=== PATIENT | male | born 1995 | race Caucasian/White ===

== ENCOUNTER 2018-10-24 16:44 | Emergency (ER) | payer MEDICAID, OTHER ==
--- NOTE | 2018-10-24 17:22 | EDM.PDOC ---
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 Pt c/o pain with movement of the wrist and hand. Points to pain over the distal ulnar shaft. No tingling or numbness in the hand. No open wound. No other injury. Onset: Today, Sudden Onset Date: 10/24/18 Onset Time: 15:30 Duration: Getting Worse Location: Reports: Upper Extremity, Right Quality: Reports: Ache Severity: Moderate Improves with: Reports: None Worsens with: Reports: None Associated Symptoms: Denies: Confusion, Chest Pain, Cough, Diaphoresis, Fever/ Chills, Headaches, Nausea/Vomiting, Rash, Seizure, Shortness of Breath, Syncope , Weakness - Related Data Allergies Allergy/AdvReac Type Severity Reaction Status Date / Time No Known Allergies Allergy Verified 04/21/18 09:22 Home Meds: Home Meds Albuterol [Ventolin HFA] 1 - 2 puff INH Q4HR PRN 04/21/18 [History] ED ROS GENERAL - Review of Systems Review Of Systems: See Below Constitutional: Denies: Fever, Chills HEENT: Denies: Rhinitis, Throat Pain Respiratory: Denies: Shortness of Breath, Cough, Sputum Cardiovascular: Denies: Chest Pain, Lightheadedness GI/Abdominal: Denies: Abdominal Pain, Nausea, Vomiting : Denies: Dysuria, Frequency Musculoskeletal: Reports: Hand Pain. Denies: Joint Pain, Joint Swelling Skin: Reports: Bruising. Denies: Pruritis, Rash, Wound Neurological: Denies: Confusion, Dizziness ED EXAM, GENERAL - Physical Exam Exam: See Below Exam Limited By: No Limitations General Appearance: Alert Eye Exam: Bilateral Eye: EOMI, PERRL Ears: Normal External Exam, Normal Canal, Hearing Grossly Normal, Normal TMs Ear Exam: Bilateral Ear: Auricle Normal, Canal Normal, TM normal Nose: Normal Inspection, Normal Mucosa, No Blood Throat/Mouth: Normal Inspection, Normal Lips, Normal Teeth, Normal Gums, Normal Oropharynx, Normal Voice, No Airway Compromise Head: Atraumatic, Normocephalic Neck: Normal Inspection, Supple, Non-Tender, Full Range of Motion Respiratory/Chest: No Respiratory Distress, Lungs Clear, Normal Breath Sounds, No Accessory Muscle Use, Chest Non-Tender Cardiovascular: Normal Peripheral Pulses, Regular Rate, Rhythm, No Edema, No Gallop, No JVD, No Murmur, No Rub Extremities: Other (right forerm and wrist: there is a ovoid swelling noted over the ulnar margin of the lower forearm, about 3cm by 4cm . raised. Tedner over the swelling. Pt can pronate and supinate the forearm. also flex and extend the hand without discomfort.) Neurological: Alert, Oriented, CN II-XII Intact, Normal Cognition, Normal Gait, Normal Reflexes, No Motor/Sensory Deficits Course - Vital Signs Text/Narrative:: Xray right wrist appears normal, soft tissue swelling noted. Pt reassured that he has develop skin contusion, but no fracture. Advised cold compresses every 2- 3 hrs. Motrin 600mg 3 times daily for pain. The contusion might cause skin discoloration, but should gradually improve without any complications. okay to return to work next Saturday. - Orders/Labs/Meds Orders: Active Orders 24 hr Category Date Time Status Wrist Comp Min 3V Rt [CR] Stat Exams 10/24/18 17:14 Ordered Departure - Departure Time of Disposition: 17:45 Disposition: Home, Self-Care 01 Condition: Good Clinical Impression: Contusion of forearm, right - Discharge Information *PRESCRIPTION DRUG MONITORING PROGRAM REVIEWED*: Not Applicable *COPY OF PRESCRIPTION DRUG MONITORING REPORT IN PATIENT ROMERO: Not Applicable Referrals: PCP,None [Primary Care Provider] - Additional Instructions: Xray right wrist appears normal, soft tissue swelling noted. Pt reassured that he has develop skin contusion, but no fracture. Advised cold compresses every 2- 3 hrs. Motrin 600mg 3 times daily for pain. The contusion might cause skin discoloration, but should gradually improve without any complications. okay to return to work next Saturday. - Problem List & Annotations (1) Contusion of forearm, right SNOMED Code(s): 51426499 Code(s): S50.11XA - CONTUSION OF RIGHT FOREARM, INITIAL ENCOUNTER Status: Acute Current Visit: Yes - Problem List Review Problem List Initiated/Reviewed/Updated: Yes - My Orders Last 24 Hours: My Active Orders 10/24/18 17:14 Wrist Comp Min 3V Rt [CR] Stat - Assessment/Plan Last 24 Hours: My Active Orders 10/24/18 17:14 Wrist Comp Min 3V Rt [CR] Stat Assessment:: right forearm contusion Plan: Xray right wrist appears normal, soft tissue swelling noted. Pt reassured that he has develop skin contusion, but no fracture. Advised cold compresses every 2- 3 hrs. Motrin 600mg 3 times daily for pain. The contusion might cause skin discoloration, but should gradually improve without any complications. okay to return to work next Saturday.
--- NOTE | 2018-10-28 09:09 | CR ---
DATE OF SERVICE: 10/24/2018 CLINICAL DATA: Heavy metal fell and hit his left lower forearm. LEFT WRIST: No priors. No acute fracture or dislocation. No lytic or blastic bone lesions. IMPRESSION: Negative exam. [id number] MTDD
== END 2018-10-24 18:15 | disposition home or self-care (01) ==
LOC: LB.ED 16:44
DX: S50.11XA Contusion of right forearm, initial encounter (principal); W20.8XXA Other cause of strike by thrown, projected or falling object, initial encounter; Y99.0 Civilian activity done for income or pay
CPT/HCPCS: 73110-LT; 99283-25

== ENCOUNTER 2019-02-28 17:30 | Emergency (ER) | payer MEDICAID ==
[2019-02-28 18:20] VITALS: BP 110/91; PULSE 65
--- NOTE | 2019-02-28 18:26 | EDM.PDOC ---
ED HPI GENERAL MEDICAL PROBLEM - General Chief Complaint: General Stated Complaint: Colds Time Seen by Provider: 02/28/19 17:45 Source of Information: Reports: Patient History Limitations: Reports: No Limitations - History of Present Illness INITIAL COMMENTS - FREE TEXT/NARRATIVE: According to patient he has been having nasal congestion and cough for about 10 days now. It has not resolved. No fever or chills. No wheezing or shortness of breath. He wants to be checked out. No No other complaints. Has been feeding well. Sleeping well. Onset: Gradual Duration: Day(s): (10 days) Severity: Mild Improves with: Reports: None Worsens with: Reports: None Associated Symptoms: Reports: Cough. Denies: Confusion, Chest Pain, Diaphoresis , Fever/Chills, Headaches, Nausea/Vomiting, Rash, Seizure, Shortness of Breath, Syncope, Weakness - Related Data Allergies Allergy/AdvReac Type Severity Reaction Status Date / Time No Known Allergies Allergy Verified 04/21/18 09:22 Home Meds: Home Meds Albuterol [Ventolin HFA] 1 - 2 puff INH Q4HR PRN 04/21/18 [History] ED ROS GENERAL - Review of Systems Review Of Systems: See Below Constitutional: Denies: Fever, Chills, Weakness HEENT: Reports: Rhinitis. Denies: Ear Pain, Throat Pain Respiratory: Reports: Cough. Denies: Shortness of Breath, Wheezing, Pleuritic Chest Pain, Sputum Cardiovascular: Denies: Chest Pain, Lightheadedness GI/Abdominal: Denies: Abdominal Pain, Nausea, Vomiting : Denies: Dysuria, Frequency ED EXAM, GENERAL - Physical Exam Exam: See Below Exam Limited By: No Limitations General Appearance: Alert, WD/WN, No Apparent Distress Eye Exam: Bilateral Eye: EOMI, PERRL Ears: Normal External Exam, Normal Canal, Hearing Grossly Normal, Normal TMs Ear Exam: Bilateral Ear: Auricle Normal, Canal Normal, TM normal Nose: Normal Mucosa, Nasal Drainage (clear minimal) Throat/Mouth: Normal Inspection, Normal Lips, Normal Teeth, Normal Gums, Normal Oropharynx, Normal Voice, No Airway Compromise Head: Atraumatic, Normocephalic Neck: Normal Inspection, Supple, Non-Tender, Full Range of Motion Respiratory/Chest: No Respiratory Distress, Lungs Clear, Normal Breath Sounds, No Accessory Muscle Use, Chest Non-Tender Cardiovascular: Normal Peripheral Pulses, Regular Rate, Rhythm, No Edema, No Gallop, No JVD, No Murmur, No Rub GI/Abdominal: Normal Bowel Sounds, Soft, Non-Tender, No Organomegaly, No Distention, No Abnormal Bruit, No Mass Course - Vital Signs Text/Narrative:: Pt's clinical exam is normal other then mild nasal congestion. His vitals are stable. His lung are clear to auscultation. His CBC done today shows white count of 6.8 with normal differentials. pt reassured that he has viral URI, he does not appear to be acutely ill. I have advised him to take Zyrtec 10mg daily, steam inhalations 2-3 times daily, and vit C 100mg daily for 1 wk. Rest and hydration. Symptoms should start to improve. Followup in clinic next week if not better. - Orders/Labs/Meds Labs: Laboratory Tests 02/28/19 Range/Units 17:55 WBC 6.8 (4.0-11.0) K/uL RBC 4.87 (4.50-6.50) M/uL Hgb 15.0 (13.0-18.0) g/dL Hct 42.6 (40.0-54.0) % MCV 88 (76-96) fL MCH 30.8 (27.0-32.0) pg MCHC 35.2 H (31.0-35.0) g/dL RDW 12.4 (11.0-16.0) % Plt Count 193 (150-400) K/uL MPV 9.9 (6.0-10.0) fL Neut % (Auto) 45.5 (45.0-70.0) % Lymph % (Auto) 35.8 (20.0-40.0) % [place] % (Auto) 10.0 (3.0-10.0) % Eos % (Auto) 8.1 H (1.0-5.0) % Baso % (Auto) 0.6 H (0.0-0.5) % Neut # (Auto) 3.11 (2.00-7.50) K/uL Lymph # (Auto) 2.44 (1.50-4.00) K/uL [place] # (Auto) 0.68 (0.20-0.80) K/uL Eos # (Auto) 0.55 H (0.04-0.40) K/uL Baso # (Auto) 0.04 (0.02-0.10) K/uL Departure - Departure Time of Disposition: 18:30 Disposition: Home, Self-Care 01 Condition: Fair Clinical Impression: Viral URI with cough - Discharge Information *PRESCRIPTION DRUG MONITORING PROGRAM REVIEWED*: Not Applicable *COPY OF PRESCRIPTION DRUG MONITORING REPORT IN PATIENT ROMERO: Not Applicable Additional Instructions: Pt's clinical exam is normal other then mild nasal congestion. His vitals are stable. His lung are clear to auscultation. His CBC done today shows white count of 6.8 with normal differentials. pt reassured that he has viral URI, he does not appear to be acutely ill. I have advised him to take Zyrtec 10mg daily, steam inhalations 2-3 times daily, and vit C 100mg daily for 1 wk. Rest and hydration. Symptoms should start to improve. Followup in clinic next week if not better. - Problem List & Annotations (1) Viral URI with cough SNOMED Code(s): 621724680 Code(s): J06.9 - ACUTE UPPER RESPIRATORY INFECTION, UNSPECIFIED; B97.89 - OTH VIRAL AGENTS THE CAUSE OF DISEASES CLASSD [id number] Status: Acute - Problem List Review Problem List Initiated/Reviewed/Updated: Yes - Assessment/Plan Assessment:: Viral URi with cough Plan: Pt's clinical exam is normal other then mild nasal congestion. His vitals are stable. His lung are clear to auscultation. His CBC done today shows white count of 6.8 with normal differentials. pt reassured that he has viral URI, he does not appear to be acutely ill. I have advised him to take Zyrtec 10mg daily, steam inhalations 2-3 times daily, and vit C 100mg daily for 1 wk. Rest and hydration. Symptoms should start to improve. Followup in clinic next week if not better.
== END 2019-02-28 18:30 | disposition home or self-care (01) ==
LOC: LB.ED 17:30
DX: J06.9 Acute upper respiratory infection, unspecified (principal)
CPT/HCPCS: 36415; 85025; 99283